=== PATIENT | male | born 1980 | race Caucasian/White ===

== ENCOUNTER 2024-02-06 20:05 | Inpatient (IN) | payer BC, SELFPAY ==
[2024-02-06] MEDS ORDERED: Acetaminophen 325 MG TAB PO PRN (20:17)
[2024-02-06] MEDS ORDERED: Dextrose 5% in Water 1,000 ML IV PRN (20:17)
[2024-02-06] MEDS ORDERED: Glucagon 1 MG/ML KIT IM PRN (20:17)
[2024-02-06] MEDS ORDERED: Dextrose 50% Abboject 50 ML SYRINGE SLOW IVP PRN (20:17)
[2024-02-06 20:43] VITALS: BMI 31.5
[2024-02-06] MEDS: traMADol HCl 50 MG TAB PO PRN (23:41)
[2024-02-06] MEDS: Senokot S 8.6-50 MG TAB PO SCH (23:41)
[2024-02-07 05:27] LABS: #Basophils 0.03 10x3/uL (0.0-0.2); %Basophils 0.3 % (0.0-1.0); %Eosinophils 0.4 % (0.0-10.0); %Lymphocytes 16.4 % (21.0-51.0); %Monocytes 10.4 % (0.0-10.0); %Neutrophils 72.2 % (42.0-75.0); Hematocrit 40.2 % (42.0-52.0); Mean Corpuscular HGB CONC 32.3 g/dL (32.0-36.0); Mean Corpuscular Volume 95.7 fL (78.0-98.0); Mean Platelet Volume 10.3 fL (7.4-10.4); Platelet Count 247 10x3/uL (130-400); RBC Distribution Width 12.9 % (11.5-14.5)
[2024-02-07 05:46] LABS: Anion Gap 13 mmol/L (10-20); BUN (Urea Nitrogen) 11 mg/dL (8.9-20.6); Calc. Creatinine Clearance 138 mL/min (70-130); Calcium 9.1 mg/dL (7.8-10.44); Carbon Dioxide 27 mmol/L (22-29); Chloride 104 mmol/L (98-107); Estimated GFR 108; Glucose 97 mg/dL (70-105); Sodium 140 mmol/L (136-145)
[2024-02-07] MEDS ORDERED: Clindamycin/D5W 900 MG in Premix 1 BAG IVPB SCH (11:00)
[2024-02-07] MEDS ORDERED: Midazolam HCl 2 mg/2 ml Vial ONE ×2 (13:12→17:04)
[2024-02-07] MEDS: Acetaminophen 500 MG TAB PO SCH (13:53)
[2024-02-07] MEDS: Senokot S 8.6-50 MG TAB PO SCH (13:53)
[2024-02-07] MEDS: traMADol HCl 50 MG TAB PO SCH (13:54)
[2024-02-07] MEDS ORDERED: PROPOFOL 20 ML ONE (14:40)
[2024-02-07] MEDS ORDERED: Lidocaine 2% PF 5 ML VIAL ONE (14:42)
[2024-02-07] MEDS ORDERED: Clindamycin/D5W 900 mg/50 ml Premix Bag ONE (14:52)
[2024-02-07] MEDS ORDERED: fentaNYL PF 100 MCG/2 ML SYRINGE ONE (14:57)
[2024-02-07] MEDS ORDERED: Dexamethasone 20 MG/5 ML VIAL ONE (15:32)
[2024-02-07] MEDS ORDERED: Ketorolac Tromethamine 30 MG (1 mL) VIAL ONE (15:32)
[2024-02-07] MEDS ORDERED: PACU-Morphine 4MG/ML VIAL SLOW IVP PRN (16:30)
[2024-02-07] MEDS ORDERED: Promethazine HCl 25 MG/ML VIAL IM PRN (16:30)
[2024-02-07] MEDS ORDERED: Morphine Sulfate 2 MG/ML SYRINGE SLOW IVP PRN (16:30)
[2024-02-07] MEDS ORDERED: Ondansetron HCl/PF 4 MG/2 ML Vial IVP PRN (16:30)
[2024-02-07] MEDS ORDERED: HYDROmorphone 2 MG/ML VIAL SLOW IVP PRN (16:30)
[2024-02-07] MEDS ORDERED: Ondansetron PF 4 MG/2 ML Vial ONE (16:30)
[2024-02-07] MEDS ORDERED: fentaNYL 50 mcg/mL 1 mL Vial ONE (18:04)
[2024-02-07] MEDS: Ondansetron ODT 4 MG TAB PO PRN (21:15)
[2024-02-07] MEDS: Morphine 4 MG/ML VIAL SLOW IVP PRN (21:16)
[2024-02-07] MEDS: Clindamycin/D5W 900 MG in Premix 1 BAG IVPB SCH (21:18)
[2024-02-08 06:20] LABS: #Basophils Less than 0.03 10x3/uL (0.0-0.2); #Eosinophils Less than 0.03 10x3/uL (0.0-0.7); %Basophils 0.1 % (0.0-1.0); %Lymphocytes 5.9 % (21.0-51.0); %Monocytes 7.3 % (0.0-10.0); %Neutrophils 86.4 % (42.0-75.0); Hemoglobin 11.8 g/dL (14.0-18.0); Mean Corpuscular HGB CONC 32.8 g/dL (32.0-36.0); Mean Corpuscular Hemoglobin 30.8 pg (27.0-31.0); Mean Platelet Volume 10.2 fL (7.4-10.4); Platelet Count 235 10x3/uL (130-400); RBC Distribution Width 12.9 % (11.5-14.5); Red Blood Cell (RBC) Count 3.83 mill/uL (4.70-6.10)
[2024-02-08] MEDS: Enoxaparin 40 MG (0.4 mL) SYRINGE SC SCH (08:42)
[2024-02-08] MEDS: traMADol HCl 50 MG TAB PO PRN (10:36)
[2024-02-08 15:32] VITALS: BP 140/84; TEMP 98.3
== END 2024-02-08 17:20 | disposition home or self-care (01) | DRG 494 ==
LOC: SURG B 20:05
PROVIDERS: ADMIT Surgery; ATTEND Surgery
PROC: 0QSH04Z Reposition Left Tibia with Internal Fixation Device, Open Approach (ICD-10-PCS; principal; 2024-02-07)
DX: S72.142A Displaced intertrochanteric fracture of left femur, initial encounter for closed fracture (principal); V58.4XXA Person boarding or alighting a pick-up truck or van injured in noncollision transport accident, initial encounter; Y93.89 Activity, other specified; Y92.89 Other specified places as the place of occurrence of the external cause; Z88.0 Allergy status to penicillin; Z88.2 Allergy status to sulfonamides
CPT/HCPCS: 36415; 80048; 85025; C1713; J1100; J1650; J1885; J2250; J2272; J2405; J2704; J3010; J3490; Q0162